=== PATIENT | female | born 1955 | race Hispanic/Latino ===

== ENCOUNTER 2024-10-14 21:29 | Emergency (ER) | payer OTHER, MEDICARE ==
[~2024-10-14] VITALS: Ht 149.9 cm; Wt 45.4 kg
--- NOTE | 2024-10-14 22:52 | ERN ---
ED Note History of Present Illness Stated Complaint: GENERALIZED WEAKNESS Chief Complaint: Weakness Time Seen by MD: 21:37 Time Seen by Midlevel: 21:37 Dictation: The patient is a 69-year-old female with a history of lung cancer, brain cancer who presents to the emergency department with complaints of generalized body weakness onset four days ago associated with low blood pressure. Patient reports her blood pressure is in the 80s. Patient denies any fevers, falls, abdominal pain, chest pain or shortness of breath. Allergies: Coded Allergies: No Known Drug Allergies (Unverified Allergy, Unknown, 10/14/24) Past Medical History RN Note Reviewed/Agreed w/PFSH: Yes Review of System Dictation Constitutional: Negative for fever,chills, and weight loss Eyes: Negative for injury, pain,redness, and discharge ENT: Negative for injury,pain or swelling Cardiovascular: Negative for chest pain, palpitations, and edema Respiratory: Negative for shortness of breath, cough, and wheezing, Abdomen/GI: Negative for abdominal pain, nausea, vomiting, diarrhea, and constipation Back: Negative for injury and pain : Negative for injury, bleeding and discharge MS/Extremity: Negative for injury and deformity Skin: Negative for rash, and discoloration Neuro: Negative for headache, , numbness, tingling, and seizure positive for weakness Psych: Negative for suicide ideation, homicidal ideation, and hallucinations Initial Vital Sign VS Vital Signs Date Time Temp Pulse Resp B/P (MAP) Pulse Ox O2 Delivery O2 Flow Rate FiO2 10/14/24 22:35 98.4 89 16 97/66 95 Room Air 0 10/14/24 23:22 21 Physical Exam Dictation Vital Signs reviewed General Appearance: Alert, oriented x 3, no acute distress, well developed, nourished. Head and Face: non-traumatic. Eyes: PERRL, pink conjunctivas, eyelid no trauma, anterior chamber with arcus senilis. Ears: Pinnas intact and no signs of trauma or erythema ear canals clear and no discharge TM no erythema Nose: No discharge, no bleeding. Oropharynx: Mouth normal, tongue pink. pharynx clear,no erythema, tonsils no exudates, no abscesses noted, mucous membrane moist Neck: Supple, non-tender, no thyromegaly, no masses, no JVD, no bruits Breast:Deferred Chest:No tenderness, no crepitus, no paradoxical movement, no retractions Lungs:Clear, well-ventilated, symmetric, no rales, no wheezing, no rhonchi, no stridor, good breath sounds bilaterally Heart: Regular rate, regular rhythm, no murmur, no gallops Vascular: no peripheral edema, Abdomen: Soft, positive bowel sounds, nondistended, no guarding, nontender, no rebound, no masses no hepatomegaly, no splenomegaly, no Rowland's sign, no hernias. Rectal: Deferred Genital: Deferred Neurological: Normal speech, motor function intact, sensory function intact Musculoskeletal: Neck nontender, full range of motion, back nontender, full range of motion, Extremities: nontender, full range of motion Skin: Color pink, dry, no turgor, no rash, no lacerations, no abrasions, no contusions. Lymphatic: Deferred Results (Laboratory/Radiology) Laboratory/Radiology Laboratory Tests Test 10/14/24 23:03 10/14/24 23:12 Urine Color COLORLESS (YELLOW) Urine Appearance CLEAR (CLEAR) Urine pH 6.5 (5.0-8.0) Urine Specific [place] 1.007 (1.001-1.031) Urine Protein NEGATIVE mg/dL (NEGATIVE) Urine Glucose (UA) NEGATIVE mg/dL (NEGATIVE) Urine Ketones NEGATIVE mg/dL (NEGATIVE) Urine Occult Blood NEGATIVE (NEGATIVE) Urine Nitrate NEGATIVE (NEGATIVE) Urine Bilirubin NEGATIVE mg/dL (NEGATIVE) Urine Urobilinogen 0.2 mg/dL (0.2-1.0) Urine Leukocyte Esterase NEGATIVE Pj/uL White Blood Count 6.0 K/uL (4.8-10.8) Red Blood Count 3.55 MIL/uL (4.00-5.50) L Hemoglobin 10.7 g/dL (12.0-16.0) L Hematocrit 32.1 % (36-48) L Mean Corpuscular Volume 90.4 fL (79-99) Mean Corpuscular Hemoglobin 30.1 pg (27.0-33.0) Mean Corpuscular Hemoglobin Concent 33.3 g/dL (32.0-36.0) Red Cell Distribution Width 19.8 % (11.0-15.5) H Platelet Count 201 K/uL (130-400) Mean Platelet Volume 9.0 fL (7.5-10.5) Immature Granulocyte % (Auto) 5.3 % (0-1) H Neutrophils (%) (Auto) 79.3 % (40.0-77.0) H Lymphocytes (%) (Auto) 8.7 % (21.0-51.0) L Monocytes (%) (Auto) 5.8 % (3.0-13.0) Eosinophils (%) (Auto) 0.2 % (0.0-8.0) Basophils (%) (Auto) 0.7 % (0.0-5.0) Neutrophils # (Auto) 4.8 K/uL (1.8-7.7) Lymphocytes # (Auto) 0.5 K/uL (1.0-4.8) L Monocytes # (Auto) 0.4 K/uL (0.1-1.0) Eosinophils # (Auto) 0.01 K/uL (0.00-0.70) Basophils # (Auto) 0.04 K/uL (0.00-0.20) Absolute Immature Granulocyte (auto 0.32 K/uL (0-1) Nucleated Red Blood Cells 0.7 % (0.0-0.19) H White Cell Morphology Comment See comments Red Blood Cell Morphology ANISO 1+ Sodium Level 139 mmol/L (136-145) Potassium Level 3.9 mmol/L (3.5-5.1) Chloride Level 108 mmol/L (101-111) Carbon Dioxide Level 26 mmol/L (21-32) Blood Urea Nitrogen 7 mg/dL (7-18) Creatinine 0.4 mg/dL (0.5-1.0) L Glomerular Filtration Rate Calc 107 mL/min (>90) Random Glucose 128 mg/dL (70-105) H Lactic Acid Level 1.1 mmol/L (0.8-2.5) Total Calcium 7.4 mg/dL (8.5-10.1) L Magnesium Level 1.80 mg/dL (1.80-2.40) Total Creatine Kinase 24 U/L (21-232) Troponin I High Sensitivity 12 ng/L (4-50) B-Type Natriuretic Peptide 31 pg/mL (0-100) Labs Reviewed?: Yes EKG: (+) rhythm (Sinus rhythm) EKG Comment: Date:10/14/2024 Time:225 Ventricular rate:72 [place] interval:175 QRS duration:74 QT/QTc:352 EKG interpretation:sinus rhythm Reviewed by ED Attending no STEMI ED Course ED Course Orders Procedure Category Date Status Time Cbc With Differential LAB 10/14/24 Complete 22:09 B-Type Natriuretic LAB 10/14/24 Complete Peptide 22:09 Chest 1vw RAD 10/14/24 Taken 22:09 12 Lead Ekg Tracing- EKG 10/14/24 Logged Technical 22:09 Magnesium LAB 10/14/24 Complete 22:09 Creatine Kinase, Total LAB 10/14/24 Complete 22:09 Troponin I High LAB 10/14/24 Complete Sensitivity 22:09 Urinalysis Profile LAB 10/14/24 Complete 22:09 Basic Metabolic Panel LAB 10/14/24 Complete 22:09 Lactic Acid LAB 10/14/24 Complete 22:09 0.9%Nacl 1000ml (Ns PHA 10/14/24 In Process 1000ml) 23:30 Orthostatic Vital CPOE 10/15/24 Transmitted Signs 00:00 Current Medications Medications (Trade) Dose Ordered Sig/Juan Luis Route PRN Reason Start Time Stop Time Status Last Admin Dose Admin Sodium Chloride 1,000 ml @ 125 mls/hr ONCE ONCE IV 10/14/24 23:30 10/15/24 07:29 10/14/24 23:21 Vital Signs Date Time Temp Pulse Resp B/P (MAP) Pulse Ox O2 Delivery O2 Flow Rate FiO2 10/14/24 23:22 98.4 75 19 93/55 97 Room Air* 0 21 10/14/24 22:35 98.4 89 16 97/66 95 Room Air 0 Medical Decision Making MDM The patient is a 69-year-old female with a history of lung cancer, brain cancer who presents to the emergency department with complaints of generalized body weakness onset four days ago associated with low blood pressure. Patient reports her blood pressure is in the 80s. Patient denies any fevers, falls, abdominal pain, chest pain or shortness of breath. CBC showed no leukocytosis, mild normocytic anemia, chemistry showed normal renal function, mild hypocalcemia. Chest x-ray showed no obvious infiltrates. EKG showed sinus rhythm. Patient received fluids in ER. Blood pressure stayed stable throughout visit in ER. Patient not tachycardic, no acute distress. Labs and imaging discussed with the patient who agrees to be discharged and follow up with PCP. Patient reports she feels well. Does not have any other complaints. Differential diagnosis: Dehydration, sepsis, pneumonia, electrolyte imbalance Need for hospitalization: Patient does not meet criteria for hospitalization. There are no social concerns with this patient. DX & DISP Disposition: Discharge Departure Impression: Primary Impression: Generalized weakness Additional Impression: Low blood pressure reading Condition: Stable Scripts Prednisone (Prednisone) 20 Mg Tablet 1 TAB PO AD for 6 Days, #14 TAB 0 Refills TAKE 1 TAB BY MOUTH THREE TIMES PER DAY X3 DAYS, THEN TAKE 1 TAB BY MOUTH TWICE A DAY X2 DAYS, THEN TAKE 1 TAB BY MOUTH ONCE A DAY X1 DAY. Prov: DOMENIC BELL 10/15/24 Additional Instructions: Please follow up with your primary doctor in 1-2 days. If symptoms worsen plea se return to ER. FOLLOW-UP WITH PRIMARY CARE PROVIDER IN 1 TO 2 DAYS. TAKE MEDICATIONS DIRECTED HERE IN THE EMERGENCY ROOM. OKAY TO CONTINUE HOME MEDICATIONS UNLESS OTHERWISE DISCUSSED DURING YOUR VISIT IN THE EMERGENCY ROOM TODAY. RETURN TO YOUR NEAREST EMERGENCY ROOM IF SYMPTOMS WORSEN OR IF THERE IS NO IMPROVEMENT. CALL 911 IF YOU NEED IMMEDIATE ASSISTANCE. TAKE TYLENOL OR MOTRIN [id number] NEEDED AND IF NO CONTRAINDICATIONS ARE PRESENT. INCREASE ORAL HYDRATION. A WOUND CULTURE OR URINE CULTURE WAS ORDERED HERE IN THE EMERGENCY ROOM DEPARTMENT PLEASE FOLLOW-UP WITH PRIMARY CARE PROVIDER AND ADVISE THEM TO GET REPEAT PORTS FROM OUR FACILITY. IF YOU HAD ANY YUKI WRAP/SPLINTS THAT WERE APPLIED HERE, PLEASE DO NOT REMOVE THEM UNTIL YOU SEE YOUR PRIMARY CARE OR SPECIALTY. Referrals: ELIANA QUINTERO DO (PCP) Time of Disposition: 01:30 I have reviewed the case, and I agree with, Diagnosis and Plan DOMENIC BELL Oct 14, 2024 22:52
[2024-10-14 23:16] LABS: APPEARANCE,URINE CLEAR (CLEAR); BILIRUBIN,URINE NEGATIVE (NEGATIVE); COLOR,URINE COLORLESS (YELLOW); GLUCOSE, URINE (UA) NEGATIVE (NEGATIVE); KETONES,URINE NEGATIVE (NEGATIVE); LEUKOCYTE ESTERASE ,URINE NEGATIVE Leu/uL (NEGATIVE); NITRATE,URINE NEGATIVE (NEGATIVE); OCCULT BLOOD,URINE NEGATIVE (NEGATIVE); PH,URINE 6.5 (5.0-8.0); PROTEIN,URINE NEGATIVE (NEGATIVE); UROBILINOGEN,URINE 0.2 mg/dL (0.2-1.0)
[2024-10-14 23:18] LABS: ADD UA MICROSCOPIC NO
[2024-10-14 23:19] LABS: BASOPHILS # (AUTO) 0.04 K/uL (0.00-0.20); BASOPHILS % (AUTO) 0.7 % (0.0-5.0); EOSINOPHILS # (AUTO) 0.01 K/uL (0.00-0.70); EOSINOPHILS % (AUTO) 0.2 % (0.0-8.0); HEMATOCRIT 32.1 % (36-48); IMMATURE GRANULOCYTE ABSOLUTE 0.32 K/uL (0-1); LYMPHOCYTES # (AUTO) 0.5 K/uL (1.0-4.8); LYMPHOCYTES % (AUTO) 8.7 % (21.0-51.0); MEAN CORPUSCULAR HEMOGLOBIN 30.1 pg (27.0-33.0); MEAN CORPUSCULAR HGB CONC 33.3 g/dL (32.0-36.0); MEAN CORPUSCULAR VOLUME 90.4 fL (79-99); MONOCYTES # (AUTO) 0.4 K/uL (0.1-1.0); MONOCYTES % (AUTO) 5.8 % (3.0-13.0); NEUTROPHILS # (AUTO) 4.8 K/uL (1.8-7.7); NEUTROPHILS % (AUTO) 79.3 % (40.0-77.0); NUCLEATED RED BLOOD CELLS 0.7 % (0.0-0.19); PLATELET COUNT (AUTO) 201 K/uL (130-400); RED BLOOD CELL COUNT(AUTO) 3.55 MIL/uL (4.00-5.50); RED CELL DISTRIBUTION WIDTH 19.8 % (11.0-15.5)
[2024-10-14] MEDS: 0.9%NACL 1000ML 1,000 ML IV ONE (23:21)
[2024-10-14 23:34] LABS: B-TYPE NATRIURETIC PEPTIDE 31 pg/mL (0-100)
[2024-10-14 23:39] LABS: CREATININE 0.4 mg/dL (0.5-1.0); POTASSIUM 3.9 mmol/L (3.5-5.1)
[2024-10-14 23:44] LABS: MAGNESIUM 1.8 mg/dL (1.80-2.40)
[2024-10-15] MEDS ORDERED: PRED20TA3 PO (01:32)
[2024-10-15 01:43] VITALS: BP 101/65; PULSE 83; RESP 17; TEMP 98.6; O2SAT 96
--- NOTE | 2024-10-15 08:51 | HMCIMG ---
Exam Type: CHEST 1VW Clinical Information: weaknes Comparison: None Findings: Right Mediport in place with no pneumothorax. The lungs are clear of infiltrates. The heart is enlarged. Bony and soft tissue structures of the chest wall are unremarkable. IMPRESSION: Cardiomegaly. Clear lungs.
--- NOTE | 2024-10-15 17:22 | EKG ---
[facility] Test Date: 2024-10-14 Test Time: 22:57:44 Pat Name: ENID FRANCIS Department: [facility] Room: Gender: F End Stapler: [id number] : 1955 Requested By: DOMENIC BELL Order Number: [id number] Reading MD: Ezekiel Burnett Measurements Intervals Belt Rate: 72 P: 34 ND: 175 QRS: 41 QRSD: 74 T: 39 QT: 352 QTc: 386 Interpretive Statements Sinus rhythm No previous ECG available for comparison Electronically Signed On 10-16-2024 18:35:34 CDT by Ezekiel Burnett Please click the below link to view image of tracing.
== END 2024-10-15 01:48 | disposition home or self-care (01) ==
LOC: EDH 21:29
DX: R53.1 Weakness (principal); R03.1 Nonspecific low blood-pressure reading
CPT/HCPCS: 99285; 71045; 82550; 83735; 84484; 80048; 83880; 85025; 83605; 81003; 36415; 93005; J7030

== ENCOUNTER 2024-11-12 09:21 | Emergency (ER) | payer OTHER, MEDICARE ==
[~2024-11-12] VITALS: Ht 147.3 cm; Wt 49.0 kg
[~2024-11-12 09:21] MED LIST: PRED20TA3 PO
[2024-11-12 09:28] VITALS: TEMP 98.2
--- NOTE | 2024-11-12 09:43 | ERN ---
General Chief Complaint: Mechanical Fall Stated Complaint: FALL Time Seen by MD: 09:29 History of Present Illness Initial Comments 69F BIB EMS from home for a fall. Patient tripped on her walker and fell backward. She hit the back of her head. No LOC. No confusion, repetitive questioning, vomiting, or focal deficits. She has a hematoma to the back of the head. She denies blood thinners. She denies any other injuries. She reports that she has been in her usual state of health otherwise. Allergies: Coded Allergies: No Known Drug Allergies (Unverified Allergy, Unknown, 10/14/24) Home Meds Active Scripts Prednisone (Prednisone) 20 Mg Tablet, 1 TAB PO AD for 6 Days, #14 TAB 0 Refills TAKE 1 TAB BY MOUTH THREE TIMES PER DAY X3 DAYS, THEN TAKE 1 TAB BY MOUTH TWICE A DAY X2 DAYS, THEN TAKE 1 TAB BY MOUTH ONCE A DAY X1 DAY. 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 Past Medical History Past Medical History: Cancer Past Surgical History: Surgical History Other: RUBA CATH Results Laboratory and Microbiology Lab and Micro Result Laboratory Tests Test 11/12/24 11:09 White Blood Count 9.8 K/uL (4.8-10.8) Red Blood Count 3.75 MIL/uL (4.00-5.50) L Hemoglobin 11.9 g/dL (12.0-16.0) L Hematocrit 35.6 % (36-48) L Mean Corpuscular Volume 94.9 fL (79-99) Mean Corpuscular Hemoglobin 31.7 pg (27.0-33.0) Mean Corpuscular Hemoglobin Concent 33.4 g/dL (32.0-36.0) Red Cell Distribution Width 19.0 % (11.0-15.5) H Platelet Count 238 K/uL (130-400) Mean Platelet Volume 9.1 fL (7.5-10.5) Immature Granulocyte % (Auto) 2.0 % (0-1) H Neutrophils (%) (Auto) 83.2 % (40.0-77.0) H Lymphocytes (%) (Auto) 5.4 % (21.0-51.0) L Monocytes (%) (Auto) 9.1 % (3.0-13.0) Eosinophils (%) (Auto) 0.1 % (0.0-8.0) Basophils (%) (Auto) 0.2 % (0.0-5.0) Neutrophils # (Auto) 8.1 K/uL (1.8-7.7) H Lymphocytes # (Auto) 0.5 K/uL (1.0-4.8) L Monocytes # (Auto) 0.9 K/uL (0.1-1.0) Eosinophils # (Auto) 0.01 K/uL (0.00-0.70) Basophils # (Auto) 0.02 K/uL (0.00-0.20) Absolute Immature Granulocyte (auto 0.20 K/uL (0-1) Nucleated Red Blood Cells 0.0 % (0.0-0.19) White Cell Morphology Comment See comments Red Blood Cell Morphology See comments Prothrombin Time 11.5 SEC (9.6-11.6) Prothromb Time International Ratio 1.09 (0.85-1.15) Activated Partial Thromboplast Time 28.3 SEC (26.3-35.5) Sodium Level 133 mmol/L (136-145) L Potassium Level 3.6 mmol/L (3.5-5.1) Chloride Level 99 mmol/L (101-111) L Carbon Dioxide Level 26 mmol/L (21-32) Blood Urea Nitrogen 13 mg/dL (7-18) Creatinine 0.5 mg/dL (0.5-1.0) Glomerular Filtration Rate Calc 101 mL/min (>90) Random Glucose 109 mg/dL (70-105) H Total Calcium 8.4 mg/dL (8.5-10.1) L MDM CC: Mechanical fall with injury to the back of the head Historian: Patient Comorbidities: Cancer hypertension hypothyroid Limitations by social determinants of health: None Differential diagnosis: Head trauma head injury TBI other No signs of other injury. Her back chest abdomen are unremarkable. She was a hematoma to the back of the head. Bleeding is controlled. GCS 15. Cranial nerves are intact. vital signs: Stable remained stable in the ER CT head (independently interpreted by me): Possible hemorrhagic contusion back of the head CT cervical spine ( Independently interpreted by me ): Unremarkable Consultation: trauma physician (Dr Escoto) at [facility] [place], Dr. Clinton neurosurgery, Dr. Sykes emergency medicine. accepts patient ED Course Orders Procedure Category Date Status Time Ct Head/Brain W/O CT 11/12/24 Resulted Contrast 09:29 Ct Cervical Spine W/O CT 11/12/24 Resulted Contrast 09:29 Cbc With Differential LAB 11/12/24 Complete 10:17 Basic Metabolic Panel LAB 11/12/24 Complete 10:17 Prothrombin Time With LAB 11/12/24 Complete INR 10:17 Partial LAB 11/12/24 Complete Thromboplastin Time 10:17 Vital Signs Date Time Temp Pulse Resp B/P (MAP) Pulse Ox O2 Delivery O2 Flow Rate FiO2 11/12/24 11:25 91 14 94/54 96 Room Air* 0 21 11/12/24 09:28 98.2 100 16 116/75 99 11/12/24 09:28 98.2 100 16 116/75 99 Room Air* 0 21 DX & DISP Disposition: Transfer (VBMV) Departure Impression: Primary Impression: Hemorrhage of brain, traumatic Critical Time: 30 minutes (Critical Care Procedure NoteAuthorized and Performed by: meTotal critical care time: Approximately 36 minutesDue to a high probability of clinically significant, life threatening deterioration, the patient required my highest level of preparedness to intervene emergently and I personally spent this critical care time directly and personally managing the patient. This critical care time included obtaining a history; examining the patient; pulse oximetry; ordering and review of studies; arranging urgent treatment with development of a management plan; evaluation of patient's response to treatment; frequent reassessment; and, discussions with other providers.This critical care time was performed to assess and manage the high probability of imminent, life-threatening deterioration that could result in multi-organ failure. It was exclusive of separately billable procedures and treating other patients and teaching time.Please see MDM section and the rest of the note for further information on patient assessment and treatment.) Condition: Stable Referrals: ELIANA QUINTERO DO (PCP) MELINA HILLS DO Nov 12, 2024 09:43
--- NOTE | 2024-11-12 10:04 | HMCIMG ---
Exam Type: CT cervical spine without contrast Clinical Information: head injury Comparison: None Technique: Spiral axial images were performed from the base of the skull down to the thoracic vertebral bodies. Both sagittal and coronal reconstructions were performed. CT Dose Index (CTDI): 12.85 mGy Dose Length Product (DLP): 282.6 total Findings: There is normal alignment of the vertebral bodies. There are no fractures. No facet hypertrophy. The prevertebral soft tissues are normal. IMPRESSION: NORMAL CERVICAL SPINE CT. This study was performed using dose reduction techniques to include automated exposure control and/or adjustment of the mA and/or kV according to patient size.
--- NOTE | 2024-11-12 10:09 | HMCIMG ---
Exam Type: CT HEAD/BRAIN W/O CONTRAST Clinical Information: head injury Comparison: None CT Dose Index (CTDI): 57.33 mGy Dose Length Product (DLP): 956.79 total mGy-cm Findings: There is a focus of high signal intensity within the left occipital lobe measuring approximately 1.5 cm. It is unclear whether this represents a small focal hemorrhagic contusion versus a metastatic deposit from patient's known lung cancer. No overlying fractures are seen but there is overlying scalp soft tissue swelling suggestive a skull in PACS side. The rest of the brain is unremarkable. IMPRESSION: Hemorrhagic contusion change versus metastatic deposit left occipital lobe.
[2024-11-12 11:35] LABS: BASOPHILS # (AUTO) 0.02 K/uL (0.00-0.20); BASOPHILS % (AUTO) 0.2 % (0.0-5.0); EOSINOPHILS # (AUTO) 0.01 K/uL (0.00-0.70); EOSINOPHILS % (AUTO) 0.1 % (0.0-8.0); HEMATOCRIT 35.6 % (36-48); LYMPHOCYTES # (AUTO) 0.5 K/uL (1.0-4.8); LYMPHOCYTES % (AUTO) 5.4 % (21.0-51.0); MEAN CORPUSCULAR HEMOGLOBIN 31.7 pg (27.0-33.0); MEAN CORPUSCULAR HGB CONC 33.4 g/dL (32.0-36.0); MEAN CORPUSCULAR VOLUME 94.9 fL (79-99); MONOCYTES # (AUTO) 0.9 K/uL (0.1-1.0); MONOCYTES % (AUTO) 9.1 % (3.0-13.0); NEUTROPHILS # (AUTO) 8.1 K/uL (1.8-7.7); NEUTROPHILS % (AUTO) 83.2 % (40.0-77.0); PLATELET COUNT (AUTO) 238 K/uL (130-400); RED BLOOD CELL COUNT(AUTO) 3.75 MIL/uL (4.00-5.50); WHITE BLOOD COUNT (AUTO) 9.8 K/uL (4.8-10.8)
[2024-11-12 11:44] LABS: INR 1.09 (0.85-1.15); PROTHROMBIN TIME 11.5 SEC (9.6-11.6)
[2024-11-12 11:46] LABS: CREATININE 0.5 mg/dL (0.5-1.0); PARTIAL THROMBOPLASTIN TIME 28.3 SEC (26.3-35.5); POTASSIUM 3.6 mmol/L (3.5-5.1)
[2024-11-12 13:21] VITALS: BP 116/64; PULSE 80; RESP 14; O2SAT 96
--- NOTE | 2024-11-12 13:37 | NUR ---
PATIENT REPORT GIVEN TO ER NURSE WITH [facility]. [facility] NOTIFIED BY [facility] FOR TRANSPORT
[2024-11-12] MEDS: miDODRine HCL 5 MG TABLET ONE (13:45)
[2024-11-12] MEDS: miDODRine HCL 5 MG TABLET PO ONE (13:45)
== END 2024-11-12 13:45 | disposition short-term general hospital (02) ==
LOC: EDH 09:21
DX: I61.9 Nontraumatic intracerebral hemorrhage, unspecified (principal); E03.9 Hypothyroidism, unspecified; I10 Essential (primary) hypertension; W01.0XXA Fall on same level from slipping, tripping and stumbling without subsequent striking against object, initial encounter; Y93.89 Activity, other specified; Y92.89 Other specified places as the place of occurrence of the external cause; Y99.8 Other external cause status
CPT/HCPCS: 36415; 70450; 72125; 80048; 85025; 85610; 85730; 99291